=== PATIENT | female | born 1955 | race Caucasian/White ===

== ENCOUNTER 2018-11-10 14:58 | Emergency (ER) | payer MEDICARE, OTHER, SELFPAY ==
[2018-11-10 15:27] LABS: POC Glucose,Bedside 105 (70-110)
[2018-11-10 15:30] VITALS: BP 107/68; PULSE 79; RESP 20; TEMP 36.6; O2SAT 96; BMI 37.0
--- NOTE | 2018-11-10 15:34 | HMH.EDUTC ---
[facility] [place] Disposition Clinical Impression: Chills Fatigue Qualifiers: Fatigue type: unspecified Qualified Code(s): R53.83 - Other fatigue Diabetes mellitus Qualifiers: Diabetes mellitus type: type 2 Diabetes mellitus laborer marine terminal insulin use: without laborer marine terminal use Diabetes mellitus complication status: without complication Qualified Code(s): E11.9 - Type 2 diabetes mellitus without complications Disposition: Home, Self-Care Condition on Discharge: Good Instructions: DI for Fatigue Additional Instructions: Follow up with your regular doctor in 24 hours. Return if you are getting worse. Continue the antibiotics you are on. GO TO THE ER FOR ANY WORSENING OR LIFE THREATENING SYMPTOMS Referrals: Mary Ann South [Primary Care Provider] - Time of Disposition: 17:18 Medical Decision Making - Medical Records Medical records reviewed: No: I reviewed the patient's medical records. - Jaylon Inquiry Pt receiving controlled substance: No Jaylon was queried for this patient: No Vital Signs: 11/10/18 15:30 11/10/18 17:33 Temperature 97.8 F 97.9 F Temperature Source Oral Oral Pulse Rate 74 Pulse Rate [Right Radial] 79 Respiratory Rate 20 20 Blood Pressure 110/74 Blood Pressure [Right Arm] 107/68 L Blood Pressure Mean [Right Arm] 81 Blood Pressure Source Automatic Cuff Blood Pressure Position Sitting 02 Sat by Pulse Oximetry 96 Oxygen Delivery Method Room Air Room Air - Lab Data Lab results reviewed: Yes: I reviewed the patient's lab results. Lab Results 11/10/18 15:18: POC Glucose 105 11/10/18 16:00: WBC 7.6, RBC 5.08, Hgb 13.3, Hct 41.5, MCV 81.7, MCH 26.3 L, MCHC 32.1, RDW 14.7, Plt Count 235, MPV 8.0, Neut % (Auto) 66.4, Lymph % (Auto) 14.1, Bond % (Auto) 5.5, Eos % (Auto) 13.7 H, Baso % (Auto) 0.4, Neut # (Auto) 5.1, Lymph # (Auto) 1.1, Bond # (Auto) 0.4, Eos # (Auto) 1.0 H, Baso # (Auto) 0.0 11/10/18 16:00: Sodium 136, Potassium 3.8, Chloride 99, Carbon Dioxide 27, Anion Gap 13.8, BUN 13, Creatinine 1.00, Estimated Creat Clear 90, Estimated GFR 56 L, Est GFR ( Amer) 67, Glucose 101, Calcium 9.2 11/10/18 16:00: Monoscreen Negative 11/10/18 16:06: Urine Color [place], Urine Appearance Slightly cloudy, Urine pH 5.5, Ur Specific [place] 1.020, Urine Protein 1+, Urine Glucose (UA) Negative, Urine Ketones 1+, Urine Blood Negative, Urine Nitrate Negative, Urine Bilirubin 1+ A, Urine Urobilinogen 0.2, Ur Leukocyte Esterase Negative Result diagrams: 11/10/18 16:00 11/10/18 16:00 - Radiology Data #1 Image(s): Chest Image Reviewed: Yes I reviewed the patient's radiology image, Yes I have reviewed radiologist's interpretation Preliminary Findings: Normal/NAD [facility] [place] HPI - General Stated complaint: blood sugar issues Time Seen by Provider: 11/10/18 16:00 - History of Present Illness Provider Complaint: She has been having waxing and waning fatigue over the past 3 weeks or so. During this time she has been treated twice for a uti with macrobid (5 day courses). Yesterday, she had an episode of chilling while she was out with her friends [place]. She is diabetic. Her friend gave her some honey to eat when she started the chilling. The chilling did subside, but afterwards when she got to chech her blood sugar it was 506. Normally her blood sugars run very close to normal. This morning at home her blood sugar was 106. She denies any documented fever. She states that in the past she had mono and she felt similar to how she does now. - Related Data Home Medications Medication Instructions Recorded Confirmed Aspirin 81 mg PO DAILY 11/10/18 11/10/18 Levothyroxine Sodium 125 mcg PO DAILY 11/10/18 11/10/18 [Levothyroxine 125mcg (0.125mg) Tab] Metformin HCl 500 mg PO BID 11/10/18 11/10/18 Nitrofurantoin Monohyd/M-Cryst 100 mg PO BID 11/10/18 11/10/18 [Nitrofurantoin Bond-Mcr 100 mg] Pravastatin Sodium [Pravachol 40mg 40 mg PO DAILY 11/10/18 11/10/18 Tablet
--- NOTE | 2018-11-10 15:35 | PC.NURSE ---
1535: XRAY NOTIFIED OF ORDER
--- NOTE | 2018-11-10 15:36 | XR_ITS ---
XR chest 2V HISTORY: ITS.REASON: FATIGUED ORDERING PHYSICIAN: Morris Hart PATIENT AGE: 63 years Technique: PA and lateral chest COMPARISON: Previous CXR 12/08/2007. FINDINGS: No prominent findings. Upper normal markings are seen at the right suprahilar and infrahilar region but these are most likely stable since 2007 comparison study. Nothing definitely acute. No pleural effusion. No pneumothorax. The heart is normal in size. Chest wall appears intact. --------IMPRESSION. Nothing definitely acute. Upper normal markings right infrahilar & right suprahilar region-appears similar to 2008 study. Thus Doubt additional significant acute process.
--- NOTE | 2018-11-10 15:39 | PC.NURSE ---
1539: PT AMBULATORY TO XRAY WITH DOOR TO DOOR LEAD GENERATION
--- NOTE | 2018-11-10 15:45 | PC.NURSE ---
1518-C.MJ COBIAN AT PT BEDSIDE. PT BG 105.
[2018-11-10 16:36] LABS: Apearance,Urine Slightly Cloudy (Clear); Bilirubin,Urine 1+ (Negative); Blood, Urine Negative (Negative); Color,Urine Amber (Yellow); Glucose,Urine (UA) Negative (Negative); Ketones,Urine 1+ (Negative); PH,Urine 5.5 (5.0-8.5); Protein,Urine 1+ (Negative); UTC Leukocyte Esterase,Urine Negative (Negative); UTC Nitrate,Urine Negative (Negative); Urobilinogen,Urine 0.2 EU/dl (0.2)
[2018-11-10 16:41] LABS: Basophils % 0.4 % (0.1-2.0); Eosinophils % 13.7 % (0.1-12.0); Hematocrit 41.5 % (37.0-47.0); Hemoglobin 13.3 g/dL (12.2-16.2); Lymphocytes # 1.1 K/mm3 (0.7-4.5); Lymphocytes % 14.1 % (10-50); Mean Corpuscular HGB Conc 32.1 g/dL (31.8-35.4); Mean Corpuscular Hemoglobin 26.3 pg (27.0-31.2); Mean Corpuscular Volume 81.7 fl (81-99); Monocytes # 0.4 K/mm3 (0.1-1.0); Monocytes % 5.5 % (1.7-9.3); Neutrophils # 5.1 K/mm3 (1.8-7.8); Neutrophils % 66.4 % (37.0-80.0); Platelet Count 235 K/mm3 (142-424); Red Blood Count 5.08 M/mm3 (4.20-5.40); Red Cell Distribution Width 14.7 % (11.5-17.5); White Blood Count 7.6 K/mm3 (4.8-10.8)
[2018-11-10 16:45] LABS: Anion Gap 13.8 mEq/L (5-15); Blood Urea Nitrogen 13 mg/dL (7-18); Calcium 9.2 mg/dL (8.5-10.1); Carbon Dioxide 27 mmol/L (21.0-32.0); Chloride 99 mmol/L (98-107); Creatinine Clearance Estimated 90 mL/min (50-200); Estimated Glomerular Filt Rate 56 ml/min (>60); GFR (African American) 67 ML/MIN (>60); Glucose 101 mg/dL (74-106); Potassium 3.8 mmoL/L (3.5-5.1); Sodium 136 mmol/L (136-145)
[2018-11-10 16:50] LABS: Monoscreen (Rapid) Negative (Negative)
[2018-11-10 17:33] VITALS: BP 110/74; PULSE 74; RESP 20; TEMP 36.6; O2SAT 98
== END 2018-11-10 17:34 | disposition home or self-care (01) ==
PROVIDERS: Emergency Provider Nurse Practitioner Family; PCP Family Medicine
DX: R53.83 Other fatigue (principal); E11.9 Type 2 diabetes mellitus without complications; Z79.84 Long term (current) use of oral hypoglycemic drugs; Z88.0 Allergy status to penicillin
CPT/HCPCS: G0463; 71046; 80048; 81003; 82962; 85025; 86318; 99202

== ENCOUNTER → 2021-09-05 13:34 | Outpatient (CLI) | payer MEDICARE, OTHER, SELFPAY ==
--- NOTE | 2021-09-05 14:21 | MM_ITS ---
PROCEDURE INFORMATION: Exam: MG Bilateral Screening 3D Mammography Exam date and time: 09/05/2021 2:21 PM Age: 66 years old Clinical indication: Encounter for screening mammogram for malignant neoplasm of breast TECHNIQUE: Imaging protocol: Bilateral screening tomosynthesis and 2D mammography including computer-aided detection (CAD) when performed. COMPARISON: No relevant prior studies available. FINDINGS: MAMMOGRAPHY: Breast composition: The breast tissue is composed of scattered areas of fibroglandular density. Mass: None. Architectural distortion: None. Calcifications: No suspicious calcifications. Asymmetric density: None. Skin thickening: None. Axillary adenopathy: None. IMPRESSION: No mammographic evidence of malignancy. Annual screening is recommended unless otherwise clinically indicated. ASSESSMENT: BI-RADS Category 1: Negative
== END ==
PROVIDERS: PCP Family Medicine; Visit Provider Family Medicine
DX: Z12.31 Encounter for screening mammogram for malignant neoplasm of breast (principal)
CPT/HCPCS: 77063; 77067

== ENCOUNTER 2023-12-06 07:58 | Outpatient (CLI) | payer MEDICARE, OTHER, SELFPAY ==
--- NOTE | 2023-12-06 08:10 | MM_ITS ---
PROCEDURE INFORMATION: Exam: MG Bilateral Screening 3D Mammography Exam date and time: 12/06/2023 8:00 AM Age: 68 years old Clinical indication: Screening. Her maternal aunt had breast cancer. History of benign left stereotactic biopsy. TECHNIQUE: Imaging protocol: Bilateral Screening tomosynthesis and 2D mammography including computer-aided detection (CAD) when performed. COMPARISON: MG MM DIG SCREENING MAMM BI W/CAD 09/05/2021 2:15 PM FINDINGS: MAMMOGRAPHY: Breast composition: There are scattered areas of fibroglandular density. Mass: No suspicious mass. Architectural distortion: None. Calcifications: No suspicious calcifications. Asymmetric density: None. Skin thickening: None. Axillary adenopathy: None. IMPRESSION: No mammographic evidence of malignancy. Annual screening is recommended unless otherwise clinically indicated. ASSESSMENT: BI-RADS Category 1: Negative
== END 2023-12-06 23:59 ==
PROVIDERS: PCP Internal Medicine; Visit Provider Internal Medicine
DX: Z12.31 Encounter for screening mammogram for malignant neoplasm of breast (principal)
CPT/HCPCS: 77063; 77067

== ENCOUNTER 2025-01-22 14:30 | Outpatient (CLI) | payer MEDICARE, OTHER, SELFPAY ==
[2025-01-22 14:24] LABS: Hemoglobin A1C 6.6 % (4.0-6.0)
[2025-01-22 14:31] LABS: Alanine Aminotransferase 18 U/L (12-78); Albumin Level 4.1 g/dl (3.5-5.0); Albumin/Globulin Ratio 1.7 (1.1-1.8); Alkaline Phosphatase 122 U/L (38-126); Anion Gap 8.3 mEq/L (5-15); Aspartate Amino Transferase 24 U/L (14-36); Bilirubin,Total 0.4 mg/dl (0.2-1.3); Blood Urea Nitrogen 14 mg/dl (7-17); Calcium 9.6 mg/dl (8.4-10.2); Carbon Dioxide 28 mmol/L (22.0-30.0); Chloride 109 mmol/L (98-107); Chol/HDL Ratio 3.2 (1-3.5); Cholesterol 167 mg/dl (140-200); Estimated Glomerular Filt Rate 71 ml/min (>60); GFR (African American) 85 ML/MIN (>60); Globulin 2.4 g/dL (1.3-3.2); Glucose 105 mg/dl (74-100); HDL Cholesterol 52 mg/dl (40-60); Potassium 4.3 mmoL/L (3.5-5.1); Sodium 141 mmol/L (136-145); Total Protein,Serum 6.5 g/dl (6.3-8.2); Triglycerides 142 mg/dl (30-150); VLDL Cholesterol 28 mg/dL (0-40)
[2025-01-22 14:42] LABS: Direct LDL Cholesterol 74.88 mg/dL (100-129)
[2025-01-22 14:48] LABS: Free T4 (Free Thyroxine) 1.59 ng/dl (0.78-2.19)
[2025-01-22 15:02] LABS: Thyroid Stimulating Hormone 0.87 uIU/mL (0.465-4.68)
== END 2025-01-22 23:59 | disposition home or self-care (01) ==
LOC: LAB.DROPOF 14:31
PROVIDERS: PCP Internal Medicine; Visit Provider Internal Medicine
DX: Z00.00 Encounter for general adult medical examination without abnormal findings (principal); Z13.29 Encounter for screening for other suspected endocrine disorder; E78.5 Hyperlipidemia, unspecified; E03.9 Hypothyroidism, unspecified; E11.9 Type 2 diabetes mellitus without complications; Z79.84 Long term (current) use of oral hypoglycemic drugs
CPT/HCPCS: 80053; 80061; 83036; 84439; 84443

== ENCOUNTER → 2025-02-24 11:08 | Outpatient (CLI) | payer MEDICARE, OTHER, SELFPAY ==
--- OUTSIDE RECORDS SUMMARY | 2025-02-24 11:11 | XMS_ITS | Data Portability ---
Author Organization [facility] Address [address] [facility] [address] [place], [place] [id number] Assessment Encounter Date Assessment Date Assessment LastModified by Organization Details LastModified Time 06/13/2019 06/13/2019 Ms. Castillo presents for her diabetes check up. We reviewed her labs and her A1C is stable at 5.9. She continues to take metformin 500 mg twice daily. Blood pressure is acceptable. Slight neuropathy was noted on exam in the toes bilaterally. She was counseled regarding following up with a fabricator foam rubber. She also requested updated handicap paperwork due to her knee arthritis and hip pains. We discussed the importance of annual eye exams. She has not had an eye exam recently. She goes to [place] and is planning to schedule an appointment soon. Overactive bladder is relieved with the myrbetriq. We provided her with a 28 day supply of myrbetriq samples. Ms. Castillo is due for her annual mammogram; she has not had one since 2017. Not available 06/14/2019 14:20:26 05/04/2020 05/04/2020 Evon presents for her wellness checkup. 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 Pre diabetes is stable and well controlled. Lipids are borderline and we recommend she continue with the statin. She has over active bladder symptoms and the Vesicare was not covered. We have provided samples of Myrbetriq and hopefully that will help. Vaccines are reviewed and she needs the flu vaccine next month. She should consider the new shingles vaccine but it is not available in our office. Her primary problem is obesity and she is unhappy with that problem but has lost significant weight so ongoing caution is advised. We recommend just healthy eating rather than focusing on dieting. Depression screen is negative and fall risk is low. We can prescribe some phentermine to help with reducing her appetite Not available 05/06/2020 00:24:58 08/02/2021 08/02/2021 Evon presents for her wellness checkup. 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 Pre diabetes is stable and well controlled. Lipids are borderline and we recommend she continue with the statin. She has over active bladder symptoms and the Myrbetriz helped but was not covered. We will prescribe an anticholinergic and hopefully it will help without significant side effects. Vaccines are reviewed and she receives the flu vaccine. She should consider the new shingles vaccine but it is not available in our office. Her primary problem is obesity and she is unhappy with that problem but has lost significant weight so ongoing caution is advised. We recommend just healthy eating rather than focusing on dieting. Depression screen is negative and fall risk is low. We can prescribe some phentermine to help with reducing her appetite Not available 08/04/2021 21:30:20 09/28/2022 09/28/2022 Evon presents for her wellness check-up. 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 She has lost about 15 pounds this past year. Pre diabetes is stable and well controlled. Lipids are borderline and we recommend she continue with the statin. We do recommend adding a trial of GLP1 Inhibitor, Victoza for the diabetes and it may also help her weight loss. She should make an eye appointment. She has been having an intermittent burning sensation over the left flank but does not really have a lot of pain there. A urinalysis is completely clear. We suspect this is most consistent with a thoracic radiculopathy so we recommend back stretches to hopefully help. If the problem worsens she may need further evaluation. She has over active bladder symptoms and the Oxybutynin helps. Vaccines are reviewed and she receives the flu vaccine. She should consider the new shingles vaccine but it is not available in our office. She is due colon cancer screening and with a history of a normal colonoscopy around ten years ago, we will order a cologuard. Ten year CV risk is 16.10%. Her primary problem is obesity and she is unhappy with that problem but has lost significant weight so ongoing caution is advised. We recommend just healthy eating rather than focusing on dieting. Depression screen is negative and fall risk is low. She has been working hard on weight loss and has done well but still struggles. With her history of diabetes, she is a candidate for Victoza and we will begin a trial of the lowest dose this month and increase it slowly if tolerated and covered by her insurance. Not available 09/28/2022 21:40:14 04/10/2023 04/10/2023 Evon follows u p on diabetes. She continues taking metformin and we had tried a GLP1 Inhibitor but it was not covered. It appears that Ozempic may be covered so we are ordering that. In addition her thyroid dosage requires adjustment downward and being over-medicated may be contributing to her mild blood pressure elevation. Weight reduction has been difficult for her and would greatly benefit her health. If the prescription GLP1 inhibitors will not be covered we can offer her the compounded Semaglutide. Not available 04/11/2023 01:18:32 Plan of Treatment Reminders Order Date Submit Date Provider Last Modified By Organization Details Last Modified Time Details Appointments None recorded. Lab urinalysis, dipstick 2022 023 [facility], [address] [place], [address], 3 17:05:00 noninvasive colorectal cancer DNA + occult blood screening, QL, stool [address] [facility], [address] [place], [address], 3 11:25:52 Referral None recorded. Procedures None recorded. Surgeries None recorded. Imaging MAMMO, screening, digital, bilateral - routine screening 2022 023 chema n5 [facility]), [address], [place], [address], 3 16:33:35 MAMMO, screening, digital, bilateral - routine screening 2020 021 jstapleto n5 [facility] (Scheduling), [address], [place], [address], 1 11:38:18 MAMMO, screening, digital, bilateral - routine screening 2019 020 [facility] n5 [facility] (Scheduling), [address], [place], [address], 0 17:58:30 Medication Orders Ozempic 0.25 mg or 0.5 mg (2 mg/1.5 mL) subcutaneou s pen injector 2022 023 [facility], [address] [place], [address], 3 11:29:24 levothyroxi ne 100 mcg tablet 2022 023 [facility], [address] [place], [address], 3 11:29:25 Victoza 3-Farhat 0.6 mg/0.1 mL (18 mg/3 mL) subcutaneou s pen injector 2022 023 [facility], [address] [place], [address], 3 11:32:51 oxybutynin chloride ER 10 mg tablet,exte nded release 24 hr 2020 021 [facility], [address] [place], [address], 1 16:19:14 phentermine 37.5 mg tablet 2020 021 [facility], [address] [place], [address], 3 15:29:50 Myrbetriq 50 mg tablet,exte nded release 2019 020 [facility], [address], [address], 3 15:29:42 phentermine 37.5 mg tablet 2019 020 [facility], [address], [address], 3 15:29:50 Myrbetriq 50 mg tablet,exte nded release 2018 019 [facility], [address], [address], 3 15:29:42 Patient TargetsNo targets recorded. Patient Instructions Encounter Date Encounter Id Patient Instructions Last Modified By Organization Details Last Modified Time 09/28/2022 [id number] low back pain: exercises Not available 09/28/2022 16:12:35 acute low back pain: exercises Not available 09/28/2022 16:12:35 [email or web address] Not available 01/2023 16:04:04 learning about healthy weight Not available 09/28/2022 21:41:56 Reason for Referral None Reported. Results Created Date Observation Date Name Description Value Unit Range Abnormal Flag Note LastModifiedBy Organization Detail LastModifiedTime 06/12/2006/13/2019 HbA1c (hemo globi n A1c), blood hemoglobin A1C 5.9 %_of_ total _HGB <5.7 high For someo ne witho ut known diabe alissa, a hemog lobin A1c value betwe en 5.7% and 6.4% is consi stent with predi abete s and shoul d be confi rmed with a follo w-up test. For someo ne with known diabe alissa, a value <7% indic ates that their diabe alissa is well contr olled . A1c targe ts shoul d be indiv idual ized based on durat ion of diabe alissa, age, comor bid condi tions , and other consi derat ions. This assay resul t is consi stent with an incre ased risk of diabe alissa. Curre ntly, no conse nsus exist s neda hammonds use of hemog lobin A1c for diagn osis of diabe alissa for child angeles. Not Available [facility] [place] [facility] [address] [place], [address], 06/13/2019 07:51:50 04/30/20 20 05/01/2020 micro album in/cr eatin ine, mass ratio , urine creatinine, random urine 37 mg/dL 20-275 normal Not Available [facility] [address] [place], [address], 05/01/2020 09:33:48 04/30/20 20 05/01/2020 micro album in/cr eatin ine, mass ratio , urine albumin, urine <0.2 mg/dL see note: normal Refer ence Range : Refer ence Range Not estab lishe d Not Available [facility] [address] [place], [address], 05/01/2020 09:33:48 04/30/20 20 05/01/2020 micro album in/cr eatin ine, mass ratio , urine albumin/crea tinine ratio, random urine NOTE mcg/m g_cre at <30 normal NOTE: The urine album in value is less than 0.2 mg/dL there fore we are unabl e to calcu late excre tion and/o r creat inine ratio . The ADA defin es abnor malit ies in album in excre tion as follo ws: Categ ory Resul t (mcg/ mg creat inine ) Leandra l <30 Micro album inuri a 30-29 9 Clini tara album inuri a > OR = 300 The ADA recom mends that at least two of three speci mens colle cted withi n a 3-6 month perio d be abnor mal befor e consi valeria g a patie nt to be withi n a diagn ostic categ ory. Not Available [facility] [address] [facility] [place], [address], 05/01/2020 09:33:48 04/30/20 20 05/01/2020 lipid panel , serum cholesterol, total 156 mg/dL <200 normal Not Available [facility] [address] [place], [address], 05/01/2020 09:33:48 04/30/20 20 05/01/2020 lipid panel , serum HDL cholesterol 57 mg/dL > or = 50 normal Not Available [facility] [address] [facility], [place], [address], 05/01/2020 09:33:48 04/30/20 20 05/01/2020 lipid panel , serum triglyceride s 120 mg/dL <150 normal Not Available [facility] [address] [facility], [place], [address], 05/01/2020 09:33:48 04/30/20 20 05/01/2020 lipid panel , serum LDL-choleste rol 78 mg/dL _(tara c) normal Refer ence range : <100 Jorge able range <100 mg/dL for prima ry preve ntion ; <70 mg/dL for patie nts with CHD or diabe tic patie nts with > or = 2 CHD risk facto rs. LDL-C is now calcu lated using the Heather n-Hop kins calcu nisreen n, which is a valid ated novel metho d provi ding marek r accur acy than the Fried armani equat ion in the estim ation of LDL-C . Heather ornelas SS et al. JOHAN. 2013; 310(1 9): 2061- 2068 (http ://ed ucati on.Qu estDi SeeToos. com/f aq/FA Q164) Not Available [facility] [address] [facility] [place], [address], 05/01/2020 09:33:48 04/30/20 20 05/01/2020 lipid panel , serum chol/HDLC ratio 2.7 (calc ) <5.0 normal Not Available [facility] [address] [place], [address], 05/01/2020 09:33:48 04/30/2005/01/2020 lipid panel , serum non HDL cholesterol 99 mg/dL _(tara c) <130 normal For patie nts with diabe alissa plus 1 major ASCVD risk facto r, treat ing to a non-H DL-C goal of <100 mg/dL (LDL- C of <70 mg/dL ) is consi dered a thera peuti c optio n. Not Available [facility] [address] [place], [address], 05/01/2020 09:33:48 04/30/2005/01/2020 CMP, serum or plasm a glucose 101 mg/dL 65-99 high Fasti ng refer ence inter le For someo ne witho ut known diabe alissa, a gluco se value betwe en 100 and 125 mg/dL is consi stent with predi abete s and shoul d be confi rmed with a follo w-up test. Not Available [facility] [address] [place], [address], 05/01/2020 09:33:48 04/30/2005/01/2020 CMP, serum or plasm a urea nitrogen (BUN) 18 mg/dL 7-25 normal Not Available [facility] [address] [place], [address], 05/01/2020 09:33:48 04/30/2005/01/2020 CMP, serum or plasm a creatinine 0.72 mg/dL 0.50-0 .99 normal For patie nts >49 years of age, the refer ence limit for Creat inine is appro ximat radha 13% highe r for peopl e ident ified as Afric an-Am renato n. Not Available [facility] [address] [facility] [place], [address], 05/01/2020 09:33:48 04/30/20 20 05/01/2020 CMP, serum or plasm a eGFR non-afr. somali 87 mL/mi n/1.7 3m2 > or = 60 normal Not Available [facility] [address] [facility] [place], [address], 05/01/2020 09:33:48 04/30/20 20 05/01/2020 CMP, serum or plasm a eGFR 100 mL/mi n/1.7 3m2 > or = 60 normal Not Available [facility] [address] [facility] [place], [address], 05/01/2020 09:33:48 04/30/20 20 05/01/2020 CMP, serum or plasm a BUN/creatini ne ratio NOT APPLIC ABLE (calc ) 6-22 Not Available [facility] [address] [facility] [place], [address], 05/01/2020 09:33:48 04/30/2005/01/2020 CMP, serum or plasm a sodium 138 mmol/ L 135-14 6 normal Not Available [facility] [address] [facility] [place], [address], 05/01/2020 09:33:48 04/30/2005/01/2020 CMP, serum or plasm a potassium 4.5 mmol/ L 3.5-5. 3 normal Not Available [facility] [address] [facility] [place], [address], 05/01/2020 09:33:48 04/30/20 20 05/01/2020 CMP, serum or plasm a chloride 104 mmol/ L 98-110 normal Not Available [facility] [address] [facility] [place], [address], 05/01/2020 09:33:48 04/30/20 20 05/01/2020 CMP, serum or plasm a carbon dioxide 28 mmol/ L 20-32 normal Not Available [facility] [address] [facility] [place], [address], 05/01/2020 09:33:48 04/30/2005/01/2020 CMP, serum or plasm a calcium 9.4 mg/dL 8.6-10 .4 normal Not Available [facility] [address] [facility] [place], [address], 05/01/2020 09:33:48 04/30/2005/01/2020 CMP, serum or plasm a protein, total 6.4 g/dL 6.1-8. 1 normal Not Available [facility] [address] [place], [address], 05/01/2020 09:33:48 04/30/2005/01/2020 CMP, serum or plasm a albumin 4.0 g/dL 3.6-5. 1 normal Not Available [facility] [place] [address] [facility] [place], [address], 05/01/2020 09:33:48 04/30/2005/01/2020 CMP, serum or plasm a globulin 2.4 g/dL_ (calc ) 1.9-3. 7 normal Not Available [facility] [address] [place], [address], 05/01/2020 09:33:48 04/30/2005/01/2020 CMP, serum or plasm a albumin/glob ulin ratio 1.7 (calc ) 1.0-2. 5 normal Not Available [facility] [place] [address] [facility] [place], [address], 05/01/2020 09:33:48 04/30/2005/01/2020 CMP, serum or plasm a bilirubin, total 0.4 mg/dL 0.2-1. 2 normal Not Available [facility] [address] [place], [address], 05/01/2020 09:33:48 04/30/20 20 05/01/2020 CMP, serum or plasm a alkaline phosphatase 109 U/L 37-153 normal Not Available [facility] [address] [place], [address], 05/01/2020 09:33:48 04/30/20 20 05/01/2020 CMP, serum or plasm a AST 21 U/L 10-35 normal Not Available [facility] [address] [place], [address], 05/01/2020 09:33:48 04/30/20 20 05/01/2020 CMP, serum or plasm a ALT 20 U/L 6-29 normal Not Available [facility] [address] [place], [address], 05/01/2020 09:33:48 04/30/2005/01/2020 HbA1c (hemo globi n A1c), blood hemoglobin A1C 6.1 %_of_ total _HGB <5.7 high For someo ne witho ut known diabe alissa, a hemog lobin A1c value betwe en 5.7% and 6.4% is consi stent with predi abete s and shoul d be confi rmed with a follo w-up test. For someo ne with known diabe alissa, a value <7% indic ates that their diabe alissa is well contr olled . A1c targe ts shoul d be indiv idual ized based on durat ion of diabe alissa, age, comor bid condi tions , and other consi derat ions. This assay resul t is consi stent with an incre ased risk of diabe alissa. Curre ntly, no conse nsus exist s regar ding use of hemog lobin A1c for diagn osis of diabe alissa for child [place]. Not Available [facility] [address] [place], [address], 05/01/2020 09:33:49 04/30/2005/01/2020 TSH, serum or plasm a TSH 0.97 mIU/L 0.40-4 .50 normal Not Available [facility] [address] [facility] [place], [address], 05/01/2020 09:33:49 04/30/2005/01/2020 CBC w/ auto diff white blood cell count 6.1 thous and/u L 3.8-10 .8 normal Not Available [facility] [place] [facility] [address] [facility] [place], [address], 05/01/2020 09:33:49 04/30/2005/01/2020 CBC w/ auto diff red blood cell count 4.85 liu on/uL 3.80-5 .10 normal Not Available [facility] [address] [place], [address], 05/01/2020 09:33:49 04/30/2005/01/2020 CBC w/ auto diff hemoglobin 12.4 g/dL 11.7-1 5.5 normal Not Available [facility] [address] [facility], [address], 05/01/2020 09:33:49 04/30/2005/01/2020 CBC w/ auto diff hematocrit 40.1 % 35.0-4 5.0 normal Not Available [facility] [address] [place], [address], 05/01/2020 09:33:49 04/30/2005/01/2020 CBC w/ auto diff MCV 82.7 fL 80.0-1 00.0 normal Not Available [facility] [address] [place], [address], 05/01/2020 09:33:49 04/30/20 20 05/01/2020 CBC w/ auto diff MCH 25.6 pg 27.0-3 3.0 low Not Available [facility] [address] [facility] [place], [address], 05/01/2020 09:33:49 04/30/20 20 05/01/2020 CBC w/ auto diff MCHC 30.9 g/dL 32.0-3 6.0 low Not Available [facility] [address] [facility] [place], [address], 05/01/2020 09:33:49 04/30/20 20 05/01/2020 CBC w/ auto diff RDW 13.6 % 11.0-1 5.0 normal Not Available [facility] [address] [place], [address], 05/01/2020 09:33:49 04/30/20 20 05/01/2020 CBC w/ auto diff platelet count 255 thous and/u L 140-40 0 normal Not Available [facility] [address] [facility] [place], [address], 05/01/2020 09:33:49 04/30/2005/01/2020 CBC w/ auto diff MPV 10.7 fL 7.5-12 .5 normal Not Available [facility] [address] [facility] [place], [address], 05/01/2020 09:33:49 04/30/2005/01/2020 CBC w/ auto diff absolute neutrophils 3044 cells /uL 1500-7 800 normal Not Available [facility] [address] [facility] [place], [address], 05/01/2020 09:33:49 04/30/20 20 05/01/2020 CBC w/ auto diff absolute lymphocytes 2159 cells /uL 850-39 00 normal Not Available [facility] [address] [place], [address], 05/01/2020 09:33:49 04/30/20 20 05/01/2020 CBC w/ auto diff absolute monocytes 372 cells /uL 200-95 0 normal Not Available [facility] [place] [facility] [address] [place], [address], 05/01/2020 09:33:49 04/30/20 20 05/01/2020 CBC w/ auto diff absolute eosinophils 445 cells /uL 15-500 normal Not Available [facility] [place] [facility] [address] [place], [address], 05/01/2020 09:33:49 04/30/20 20 05/01/2020 CBC w/ auto diff absolute basophils 79 cells /uL 0-200 normal Not Available [facility] [place] [facility] [address] [place], [address], 05/01/2020 09:33:49 04/30/20 20 05/01/2020 CBC w/ auto diff neutrophils 49.9 % normal Not Available [facility] [place] [facility] [address] [place], [address], 05/01/2020 09:33:49 04/30/20 20 05/01/2020 CBC w/ auto diff lymphocytes 35.4 % normal Not Available [facility] [place] [facility] [address] [place], [address], 05/01/2020 09:33:49 04/30/20 20 05/01/2020 CBC w/ auto diff monocytes 6.1 % normal Not Available [facility] [place] [facility] [address] [place], [address], 05/01/2020 09:33:49 04/30/20 20 05/01/2020 CBC w/ auto diff eosinophils 7.3 % normal Not Available [facility] [place] [facility] [address] [facility], [place], [address], 05/01/2020 09:33:49 04/30/20 20 05/01/2020 CBC w/ auto diff basophils 1.3 % normal Not Available [facility] [place] [facility] [address] [facility], [place], [address], 05/01/2020 09:33:49 07/28/20 21 07/29/2021 ALBUM IN, RANDO M URINE W/CRE ATINI NE creatinine, random urine 33 mg/dL 20-275 normal Not Available [facility] [place] [facility] [address] [facility], [place], [address], 07/29/2021 12:51:18 07/28/20 21 07/29/2021 ALBUM IN, RANDO M URINE W/CRE ATINI NE albumin, urine 0.7 mg/dL see note: normal Refer ence Range : Refer ence Range Not estab lishe d Not Available [facility] [place] [facility] [address] [facility], [place], [address], 07/29/2021 12:51:18 07/28/20 21 07/29/2021 ALBUM IN, RANDO M URINE W/CRE ATINI NE albumin/crea tinine ratio, random urine 21 mcg/m g_cre at <30 normal The ADA defin es abnor malit ies in album in excre tion as follo ws: Album inuri a Categ ory Resul t (mcg/ mg creat inine ) Leandra l to Mildl y incre ased <30 Moder ately incre ased 30-29 9 Sever radha incre ased > OR = 300 The ADA recom mends that at least two of three speci mens colle cted withi n a 3-6 month perio d be abnor mal befor e consi valeria g a patie nt to be withi n a diagn ostic categ ory. Not Available [facility] [place] [facility] [address] [facility], [place], [address], 07/29/2021 12:51:18 07/28/20 21 07/29/2021 LIPID PANEL , STAND LILLIE cholesterol, total 178 mg/dL <200 normal Not Available [facility] [address] [place], [address], 07/29/2021 12:51:18 07/28/20 21 07/29/2021 LIPID PANEL , STAND LILLIE HDL cholesterol 50 mg/dL > or = 50 normal Not Available [facility] [address] [place], [address], 07/29/2021 12:51:18 07/28/20 21 07/29/2021 LIPID PANEL , STAND LILLIE triglyceride s 160 mg/dL <150 high Not Available [facility] [address] [facility], [place], [address], 07/29/2021 12:51:18 07/28/20 21 07/29/2021 LIPID PANEL , STAND LILLIE LDL-choleste rol 102 mg/dL _(tara c) high Refer ence range : <100 Jorge able range <100 mg/dL for prima ry preve ntion ; <70 mg/dL for patie nts with CHD or diabe tic patie nts with > or = 2 CHD risk facto rs. LDL-C is now calcu lated using the Heather n-Hop kins calcu nisreen n, which is a valid ated novel michaelo aston jara r accur acy than the Fried armani equat ion in the estim ation of LDL-C . Heather ROACH et al. JOHAN. 2013; 310(1 9): 2061- 2068 (http ://ed ucati on.Qu Rosi burnetteTSSI Systemss. com/f aq/FA Q164) Not Available [facility] [address] [place], [address], 07/29/2021 12:51:18 07/28/20 21 07/29/2021 LIPID PANEL , STAND LILLIE chol/HDLC ratio 3.6 (calc ) <5.0 normal Not Available [facility] [address] [place], [address], 07/29/2021 12:51:18 07/28/20 21 07/29/2021 LIPID PANEL , STAND LILLIE non HDL cholesterol 128 mg/dL _(tara c) <130 normal For patie nts with diabe alissa plus 1 major ASCVD risk facto r, treat ing to a non-H DL-C goal of <100 mg/dL (LDL- C of <70 mg/dL ) is consi dered a thera peuti c optio n. Not Available [facility] [address] [place], [address], 07/29/2021 12:51:18 07/28/20 21 07/29/2021 COMPR EHENS ROSALBA METAB OLIC PANEL glucose 107 mg/dL 65-99 high Fasti ng refer ence inter le For someo ne witho ut known diabe alissa, a gluco se value betwe en 100 and 125 mg/dL is consi stent with predi abete s and shoul d be confi rmed with a follo w-up test. Not Available [facility] [address] [place], [address], 07/29/2021 12:51:19 07/28/20 21 07/29/2021 COMPR EHENS ROSALBA METAB OLIC PANEL urea nitrogen (BUN) 14 mg/dL 7-25 normal Not Available [facility] [address] [place], [address], 07/29/2021 12:51:19 07/28/20 21 07/29/2021 COMPR EHENS ROSALBA METAB OLIC PANEL creatinine 0.74 mg/dL 0.50-0 .99 normal For patie nts >49 years of age, the refer ence limit for Creat inine is appro ximat radha 13% highe r for peopl e ident ified as Afric an-Am renato n. Not Available [facility] [address] [place], [address], 07/29/2021 12:51:19 07/28/20 21 07/29/2021 COMPR EHENS ROSALBA METAB OLIC PANEL eGFR non-afr. somali 83 mL/mi n/1.7 3m2 > or = 60 normal Not Available [facility] [address] [facility] [place], [address], 07/29/2021 12:51:19 07/28/20 21 07/29/2021 COMPR EHENS ROSALBA METAB OLIC PANEL eGFR 96 mL/mi n/1.7 3m2 > or = 60 normal Not Available [facility] [address] [facility] [place], [address], 07/29/2021 12:51:19 07/28/20 21 07/29/2021 COMPR EHENS ROSALBA METAB OLIC PANEL BUN/creatini ne ratio NOT APPLIC ABLE (calc ) 6-22 Not Available [facility] [address] [facility] [place], [address], 07/29/2021 12:51:19 07/28/20 21 07/29/2021 COMPR EHENS ROSALBA METAB OLIC PANEL sodium 141 mmol/ L 135-14 6 normal Not Available [facility] [address] [place], [address], 07/29/2021 12:51:19 07/28/20 21 07/29/2021 COMPR EHENS ROSALBA METAB OLIC PANEL potassium 4.6 mmol/ L 3.5-5. 3 normal Not Available [facility] [address] [facility] [place], [address], 07/29/2021 12:51:19 07/28/20 21 07/29/2021 COMPR EHENS ROSALBA METAB OLIC PANEL chloride 105 mmol/ L 98-110 normal Not Available [facility] [address] [facility] [place], [address], 07/29/2021 12:51:19 07/28/20 21 07/29/2021 COMPR EHENS ROSALBA METAB OLIC PANEL carbon dioxide 33 mmol/ L 20-32 high Not Available [facility] [address] [facility] [place], [address], 07/29/2021 12:51:19 07/28/20 21 07/29/2021 COMPR EHENS ROSALBA METAB OLIC PANEL calcium 9.7 mg/dL 8.6-10 .4 normal Not Available [facility] [address] [facility] [place], [address], 07/29/2021 12:51:19 07/28/20 21 07/29/2021 COMPR EHENS ROSALBA METAB OLIC PANEL protein, total 7.0 g/dL 6.1-8. 1 normal Not Available [facility] [address] [facility] [place], [address], 07/29/2021 12:51:19 07/28/20 21 07/29/2021 COMPR EHENS ROSALBA METAB OLIC PANEL albumin 3.9 g/dL 3.6-5. 1 normal Not Available [facility] [address] [facility] [place], [address], 07/29/2021 12:51:19 07/28/20 21 07/29/2021 COMPR EHENS ROSALBA METAB OLIC PANEL globulin 3.1 g/dL_ (calc ) 1.9-3. 7 normal Not Available [facility] [address] [place], [address], 07/29/2021 12:51:19 07/28/20 21 07/29/2021 COMPR EHENS ROSALBA METAB OLIC PANEL albumin/glob ulin ratio 1.3 (calc ) 1.0-2. 5 normal Not Available [facility] [address] [facility] [place], [address], 07/29/2021 12:51:19 07/28/20 21 07/29/2021 COMPR EHENS ROSALBA METAB OLIC PANEL bilirubin, total 0.4 mg/dL 0.2-1. 2 normal Not Available [facility] [address] [facility] [place], [address], 07/29/2021 12:51:19 07/28/20 21 07/29/2021 COMPR EHENS ROSALBA METAB OLIC PANEL alkaline phosphatase 123 U/L 37-153 normal Not Available [facility] [address] [place], [address], 07/29/2021 12:51:19 07/28/20 21 07/29/2021 COMPR EHENS ROSALBA METAB OLIC PANEL AST 22 U/L 10-35 normal Not Available [facility] [address] [facility] [place], [address], 07/29/2021 12:51:19 07/28/20 21 07/29/2021 COMPR EHENS ROSALBA METAB OLIC PANEL ALT 24 U/L 6-29 normal Not Available [facility] [address] [place], [address], 07/29/2021 12:51:19 07/28/20 21 07/29/2021 HEMOG LOBIN A1C hemoglobin A1C 6.6 %_of_ total _HGB <5.7 high For someo ne witho ut known diabe alissa, a hemog lobin A1c value of 6.5% or great er indic ates that they may have diabe alissa and this shoul d be confi rmed with a follo w-up test. For someo ne with known diabe alissa, a value <7% indic ates that their diabe alissa is well contr olled and a value great er than or equal to 7% indic ates subop timal contr ol. A1c targe ts shoul d be indiv idual ized based on durat ion of diabe alissa, age, comor bid condi tions , and other consi derat ions. Curre ntly, no conse nsus exist s neda hammonds use of hemog lobin A1c for diagn osis of diabe alissa for child angeles. Not Available [facility] [address] [facility] [facility], [place], [address], 07/29/2021 12:51:19 07/28/20 21 07/29/2021 TSH TSH 2.06 mIU/L 0.40-4 .50 normal Not Available [facility] [address], [place], [address], 07/29/2021 12:51:19 07/28/20 21 07/29/2021 CBC (INCL UDES DIFF/ PLT) white blood cell count 6.5 thous and/u L 3.8-10 .8 normal Not Available [facility] [address], [place], [address], 07/29/2021 12:51:20 07/28/20 21 07/29/2021 CBC (INCL UDES DIFF/ PLT) red blood cell count 4.83 liu on/uL 3.80-5 .10 normal Not Available [facility] [address], [place], [address], 07/29/2021 12:51:20 07/28/20 21 07/29/2021 CBC (INCL UDES DIFF/ PLT) hemoglobin 12.7 g/dL 11.7-1 5.5 normal Not Available [facility] [address], [place], [address], 07/29/2021 12:51:20 07/28/20 21 07/29/2021 CBC (INCL UDES DIFF/ PLT) hematocrit 39.3 % 35.0-4 5.0 normal Not Available [facility] [place] [facility] [address], [place], [address], 07/29/2021 12:51:20 07/28/20 21 07/29/2021 CBC (INCL UDES DIFF/ PLT) MCV 81.4 fL 80.0-1 00.0 normal Not Available [facility] [place] [facility] [address] [facility], [place], [address], 07/29/2021 12:51:20 07/28/20 21 07/29/2021 CBC (INCL UDES DIFF/ PLT) MCH 26.3 pg 27.0-3 3.0 low Not Available [facility] [address] [facility], [place], [address], 07/29/2021 12:51:20 07/28/20 21 07/29/2021 CBC (INCL UDES DIFF/ PLT) MCHC 32.3 g/dL 32.0-3 6.0 normal Not Available [facility] [address] [facility], [place], [address], 07/29/2021 12:51:20 07/28/20 21 07/29/2021 CBC (INCL UDES DIFF/ PLT) RDW 14.0 % 11.0-1 5.0 normal Not Available [facility] [address] [facility], [place], [address], 07/29/2021 12:51:20 07/28/20 21 07/29/2021 CBC (INCL UDES DIFF/ PLT) platelet count 279 thous and/u L 140-40 0 normal Not Available [facility] [address], [place], [address], 07/29/2021 12:51:20 07/28/20 21 07/29/2021 CBC (INCL UDES DIFF/ PLT) MPV 11.4 fL 7.5-12 .5 normal Not Available [facility] [address] [facility], [place], [address], 07/29/2021 12:51:20 07/28/20 21 07/29/2021 CBC (INCL UDES DIFF/ PLT) absolute neutrophils 3523 cells /uL 1500-7 800 normal Not Available [facility] [place] [facility] [address], [place], [address], 07/29/2021 12:51:20 07/28/20 21 07/29/2021 CBC (INCL UDES DIFF/ PLT) absolute lymphocytes 1996 cells /uL 850-39 00 normal Not Available [facility] [address], [place], [address], 07/29/2021 12:51:20 07/28/20 21 07/29/2021 CBC (INCL UDES DIFF/ PLT) absolute monocytes 410 cells /uL 200-95 0 normal Not Available [facility] [address], [place], [address], 07/29/2021 12:51:20 07/28/20 21 07/29/2021 CBC (INCL UDES DIFF/ PLT) absolute eosinophils 475 cells /uL 15-500 normal Not Available [facility] [place] [facility] [address], [place], [address], 07/29/2021 12:51:20 07/28/20 21 07/29/2021 CBC (INCL UDES DIFF/ PLT) absolute basophils 98 cells /uL 0-200 normal Not Available [facility] [address], [place], [address], 07/29/2021 12:51:20 07/28/20 21 07/29/2021 CBC (INCL UDES DIFF/ PLT) neutrophils 54.2 % normal Not Available [facility] [address], [place], [address], 07/29/2021 12:51:20 07/28/20 21 07/29/2021 CBC (INCL UDES DIFF/ PLT) lymphocytes 30.7 % normal Not Available [facility] [address] [place], [address], 07/29/2021 12:51:20 07/28/20 21 07/29/2021 CBC (INCL UDES DIFF/ PLT) monocytes 6.3 % normal Not Available [facility] [place] [facility] [address] [facility], [place], [address], 07/29/2021 12:51:20 07/28/20 21 07/29/2021 CBC (INCL UDES DIFF/ PLT) eosinophils 7.3 % normal Not Available [facility] [address] [place], [address], 07/29/2021 12:51:20 07/28/20 21 07/29/2021 CBC (INCL UDES DIFF/ PLT) basophils 1.5 % normal Not Available [facility] [address] [place], [address], 07/29/2021 12:51:20 09/26/19 23 09/27/2022 ALBUM IN, RANDO M URINE W/CRE ATINI NE creatinine, random urine 62 mg/dL 20-275 normal Not Available [facility] [address] [facility], [place], [address], 09/27/2022 16:01:51 09/26/19 23 09/27/2022 ALBUM IN, RANDO M URINE W/CRE ATINI NE albumin, urine 0.3 mg/dL see note: normal Refer ence Range : Refer ence Range Not estab lishe d Not Available [facility] [address] [place], [address], 09/27/2022 16:01:51 09/26/19 23 09/27/2022 ALBUM IN, RANDO M URINE W/CRE ATINI NE albumin/crea tinine ratio, random urine 5 mcg/m g_cre at <30 normal The ADA defin es abnor malit ies in album in excre tion as follo ws: Album inuri a Categ ory Resul t (mcg/ mg creat inine ) Leandra l to Mildl y incre ased <30 Moder ately incre ased 30-29 9 Sever radha incre ased > OR = 300 The ADA recom mends that at least two of three speci mens colle cted withi n a 3-6 month perio d be abnor mal befor e consi valeria g a patie nt to be withi n a diagn ostic categ ory. Not Available [facility] [address] [facility], [place], [address], 09/27/2022 16:01:51 09/26/19 23 09/27/2022 LIPID PANEL , STAND LILLIE cholesterol, total 193 mg/dL <200 normal Not Available [facility] [address] [facility], [place], [address], 09/27/2022 16:01:52 09/26/19 23 09/27/2022 LIPID PANEL , STAND LILLIE HDL cholesterol 52 mg/dL > or = 50 normal Not Available [facility] [address] [facility], [place], [address], 09/27/2022 16:01:52 09/26/19 23 09/27/2022 LIPID PANEL , STAND LILLIE triglyceride s 157 mg/dL <150 high Not Available [facility] [address] [facility], [place], [address], 09/27/2022 16:01:52 09/26/19 23 09/27/2022 LIPID PANEL , STAND LILLIE LDL-choleste rol 114 mg/dL _(tara c) high Refer ence range : <100 Jorge able range <100 mg/dL for prima ry preve ntion ; <70 mg/dL for patie nts with CHD or diabe tic patie nts with > or = 2 CHD risk facto rs. LDL-C is now calcu lated using the Heather n-Hop kins calcu nisreen n, which is a valid ated novel metho d provi ding marek r accur acy than the Fried armani almodovarat ion in the estim ation of LDL-C . Heather n SS et al. JOHAN. 2013; 310(1 9): 2061- 2068 (http ://ed ucati on.Qu Rosi yomaira640 Labs. com/f aq/FA Q164) Not Available [facility] [place] [facility] [address] [facility], [place], [address], 09/27/2022 16:01:52 09/26/19 23 09/27/2022 LIPID PANEL , STAND LILLIE chol/HDLC ratio 3.7 (calc ) <5.0 normal Not Available [facility] [place] [facility] [address] [facility], [place], [address], 09/27/2022 16:01:52 09/26/19 23 09/27/2022 LIPID PANEL , STAND LILLIE non HDL cholesterol 141 mg/dL _(tara c) <130 high For patie nts with diabe alissa plus 1 major ASCVD risk facto r, treat ing to a non-H DL-C goal of <100 mg/dL (LDL- C of <70 mg/dL ) is lissettei marcy peña n. Not Available [facility] [place] [facility] [address] [facility], [place], [address], 09/27/2022 16:01:52 09/26/19 23 09/27/2022 COMPR EHENS ROSALBA METAB OLIC PANEL glucose 95 mg/dL 65-99 normal Fasti ng refer ence inter le Not Available [facility] [place] [facility] [address], [place], [address], 09/27/2022 16:01:52 09/26/19 23 09/27/2022 COMPR EHENS ROSALBA METAB OLIC PANEL urea nitrogen (BUN) 15 mg/dL 7-25 normal Not Available [facility] [place] [facility] [address], [place], [address], 09/27/2022 16:01:52 09/26/19 23 09/27/2022 COMPR EHENS ROSALBA METAB OLIC PANEL creatinine 0.84 mg/dL 0.50-1 .05 normal Not Available [facility] [address] [place], [address], 09/27/2022 16:01:52 09/26/19 23 09/27/2022 COMPR EHENS ROSALBA METAB OLIC PANEL eGFR 75 mL/mi n/1.7 3m2 > or = 60 normal The eGFR is based on the CKD-E PI 2020 equat ion. To calcu late the new eGFR from a previ ous Creat inine or Cysta tin C resul t, go to https ://aspen shoemaker.o cam/gilbert doss s/ kdoqi /gfr% 5Fcal culat or Not Available [facility] [address] [place], [address], 09/27/2022 16:01:52 09/26/19 23 09/27/2022 COMPR EHENS ROSALBA METAB OLIC PANEL BUN/creatini ne ratio NOT APPLIC ABLE (calc ) 6-22 Not Available [facility] [address] [place], [address], 09/27/2022 16:01:52 09/26/19 23 09/27/2022 COMPR EHENS ROSALBA METAB OLIC PANEL sodium 138 mmol/ L 135-14 6 normal Not Available [facility] [address] [place], [address], 09/27/2022 16:01:52 09/26/19 23 09/27/2022 COMPR EHENS ROSALBA METAB OLIC PANEL potassium 4.3 mmol/ L 3.5-5. 3 normal Not Available [facility] [address] [place], [address], 09/27/2022 16:01:52 09/26/19 23 09/27/2022 COMPR EHENS ROSALBA METAB OLIC PANEL chloride 102 mmol/ L 98-110 normal Not Available [facility] [address] [place], [place] [address], [address], 09/27/2022 16:01:52 09/26/19 23 09/27/2022 COMPR EHENS ROSALBA METAB OLIC PANEL carbon dioxide 29 mmol/ L 20-32 normal Not Available [facility] [address] [place], [place] [address], [address], 09/27/2022 16:01:52 09/26/19 23 09/27/2022 COMPR EHENS ROSALBA METAB OLIC PANEL calcium 9.7 mg/dL 8.6-10 .4 normal Not Available [facility] [address] [facility] [place], [address], 09/27/2022 16:01:52 09/26/19 23 09/27/2022 COMPR EHENS ROSALBA METAB OLIC PANEL protein, total 6.8 g/dL 6.1-8. 1 normal Not Available [address] [place], [address], 09/27/2022 16:01:52 09/26/19 23 09/27/2022 COMPR EHENS ROSALBA METAB OLIC PANEL albumin 4.0 g/dL 3.6-5. 1 normal Not Available [facility] [address] [place], [place] [address], [address], 09/27/2022 16:01:52 09/26/19 23 09/27/2022 COMPR EHENS ROSALBA METAB OLIC PANEL globulin 2.8 g/dL_ (calc ) 1.9-3. 7 normal Not Available [facility] [address] [place], [place] [address], [address], 09/27/2022 16:01:52 09/26/19 23 09/27/2022 COMPR EHENS ROSALBA METAB OLIC PANEL albumin/glob ulin ratio 1.4 (calc ) 1.0-2. 5 normal Not Available [facility] [address] [place], [address], 09/27/2022 16:01:52 09/26/19 23 09/27/2022 COMPR EHENS ROSALBA METAB OLIC PANEL bilirubin, total 0.5 mg/dL 0.2-1. 2 normal Not Available [facility] [address] [place], [address], 09/27/2022 16:01:52 09/26/19 23 09/27/2022 COMPR EHENS ROSALBA METAB OLIC PANEL alkaline phosphatase 111 U/L 37-153 normal Not Available [facility] [address] [place], [address], 09/27/2022 16:01:52 09/26/19 23 09/27/2022 COMPR EHENS ROSALBA METAB OLIC PANEL AST 15 U/L 10-35 normal Not Available [facility] [address] [place], [address], 09/27/2022 16:01:52 09/26/19 23 09/27/2022 COMPR EHENS ROSALBA METAB OLIC PANEL ALT 16 U/L 6-29 normal Not Available [facility] [address] [place], [address], 09/27/2022 16:01:52 09/26/19 23 09/27/2022 HEMOG LOBIN A1C hemoglobin A1C 6.1 %_of_ total _HGB <5.7 high For someo ne witho ut known diabe alissa, a hemog lobin A1c value betwe en 5.7% and 6.4% is consi stent with predi abete s and shoul d be confi rmed with a follo w-up test. For someo ne with known diabe alissa, a value <7% indic ates that their diabe alissa is well contr olled . A1c targe ts shoul d be indiv idual ized based on durat ion of diabe alissa, age, comor bid condi tions , and other consi derat ions. This assay resul t is consi stent with an incre ased risk of diabe alissa. Curre ntly, no conse nsus exist s regar cassius use of hemog lobin A1c for diagn osis of diabe alissa for child [place]. Not Available [facility] [place] [facility] [address] [place], [address], 09/27/2022 16:01:53 09/26/19 23 09/27/2022 TSH TSH 1.12 mIU/L 0.40-4 .50 normal Not Available [facility] [place] [facility] [address] [place], [address], 09/27/2022 16:01:53 09/26/19 23 09/27/2022 CBC (INCL UDES DIFF/ PLT) white blood cell count 7.6 thous and/u L 3.8-10 .8 normal Not Available [facility] [place] [facility] [address] [place], [address], 09/27/2022 16:01:53 09/26/19 23 09/27/2022 CBC (INCL UDES DIFF/ PLT) red blood cell count 5.16 liu on/uL 3.80-5 .10 high Not Available [facility] [place] [facility] [address] [place], [address], 09/27/2022 16:01:53 09/26/19 23 09/27/2022 CBC (INCL UDES DIFF/ PLT) hemoglobin 13.3 g/dL 11.7-1 5.5 normal Not Available [facility] [place] [facility] [address] [place], [address], 09/27/2022 16:01:53 09/26/19 23 09/27/2022 CBC (INCL UDES DIFF/ PLT) hematocrit 42.7 % 35.0-4 5.0 normal Not Available [facility] [place] [facility] [address] [place], [place] [address], [place], [address], 09/27/2022 16:01:53 09/26/19 23 09/27/2022 CBC (INCL UDES DIFF/ PLT) MCV 82.8 fL 80.0-1 00.0 normal Not Available [facility] [place] [facility] [address] [place], [place] [address], [place], [address], 09/27/2022 16:01:53 09/26/19 23 09/27/2022 CBC (INCL UDES DIFF/ PLT) MCH 25.8 pg 27.0-3 3.0 low Not Available [facility] [place] [facility] [address] [facility] [place], [address], 09/27/2022 16:01:53 09/26/19 23 09/27/2022 CBC (INCL UDES DIFF/ PLT) MCHC 31.1 g/dL 32.0-3 6.0 low Not Available [facility] [place] [facility] [address] [place], [place] [address], [address], 09/27/2022 16:01:53 09/26/19 23 09/27/2022 CBC (INCL UDES DIFF/ PLT) RDW 14.0 % 11.0-1 5.0 normal Not Available [facility] [place] [facility] [address] [place], [place] [address], [address], 09/27/2022 16:01:53 09/26/19 23 09/27/2022 CBC (INCL UDES DIFF/ PLT) platelet count 367 thous and/u L 140-40 0 normal Not Available [facility] [place] [facility] [address] [place], [place] [address]christieLifePoint [place], [address], 09/27/2022 16:01:53 09/26/19 23 09/27/2022 CBC (INCL UDES DIFF/ PLT) MPV 11.1 fL 7.5-12 .5 normal Not Available [facility] [place] [facility] [address], [place], [address], 09/27/2022 16:01:53 09/26/19 23 09/27/2022 CBC (INCL UDES DIFF/ PLT) absolute neutrophils 4362 cells /uL 1500-7 800 normal Not Available [facility] [place] [facility] [address], [place], [address], 09/27/2022 16:01:53 09/26/19 23 09/27/2022 CBC (INCL UDES DIFF/ PLT) absolute lymphocytes 2348 cells /uL 850-39 00 normal Not Available [facility] [place] [facility] [address], [place], [address], 09/27/2022 16:01:53 09/26/19 23 09/27/2022 CBC (INCL UDES DIFF/ PLT) absolute monocytes 448 cells /uL 200-95 0 normal Not Available [facility] [place] [facility] [address], [place], [address], 09/27/2022 16:01:53 09/26/19 23 09/27/2022 CBC (INCL UDES DIFF/ PLT) absolute eosinophils 357 cells /uL 15-500 normal Not Available [facility] [place] [facility] [address], [place], [address], 09/27/2022 16:01:53 09/26/19 23 09/27/2022 CBC (INCL UDES DIFF/ PLT) absolute basophils 84 cells /uL 0-200 normal Not Available [facility] [place] [facility] [address], [place], [address], 09/27/2022 16:01:53 09/26/19 23 09/27/2022 CBC (INCL UDES DIFF/ PLT) neutrophils 57.4 % normal Not Available [facility] [place] [facility] [address], [place], [address], 09/27/2022 16:01:53 09/26/19 23 09/27/2022 CBC (INCL UDES DIFF/ PLT) lymphocytes 30.9 % normal Not Available [facility] [place] [facility] [address] [place], [address], 09/27/2022 16:01:53 09/26/19 23 09/27/2022 CBC (INCL UDES DIFF/ PLT) monocytes 5.9 % normal Not Available [facility] [place] [facility] [address] [place], [address], 09/27/2022 16:01:53 09/26/19 23 09/27/2022 CBC (INCL UDES DIFF/ PLT) eosinophils 4.7 % normal Not Available [facility] [place] [facility] [address] [place], [address], 09/27/2022 16:01:53 09/26/19 23 09/27/2022 CBC (INCL UDES DIFF/ PLT) basophils 1.1 % normal Not Available [facility] [place] [facility] [address] [place], [address], 09/27/2022 16:01:53 09/26/19 23 09/27/2022 HEPAT ITIS C AB W/REF L TO HCV RNA, QN, PCR hepatitis C antibody NON-RE ACTIVE non-re active normal Not Available [facility] [place] [facility] [address] [place], [address], 09/27/2022 16:01:54 09/26/19 23 09/27/2022 HEPAT ITIS C AB W/REF L TO HCV RNA, QN, PCR index 0.11 <1.00 normal HCV antib alysha was non-r eacti ve. There is no labor atory evide nce of HCV infec tion. In most cases , no furth er actio n is requi red. Howev er, if recen t HCV expos ure is suspe cted, a test for HCV RNA (test code 38873 ) is sugge sted. For addit ional infor soto kednall e refer to http: //joshua irving ics.c om/fa q/FAQ 22v1 (This link is being provi ded for infor soto العراقي/ angelina shankar only. ) Not Available [facility] [place] [facility] [address] [facility] [place], [address], 09/27/2022 16:01:54 09/28/19 23 09/28/2022 urina lysis , dipst ick Leukocytes Negati ve Not Available [facility] [address] [place], [address], 09/28/2022 16:06:58 09/28/19 23 09/28/2022 urina lysis , dipst ick Nitrite negati ve Not Available [facility] [address] [place], [address], 09/28/2022 16:06:58 09/28/19 23 09/28/2022 urina lysis , dipst ick Urobilinogen .2 Not Available [facility] [address] [place], [address], 09/28/2022 16:06:58 09/28/19 23 09/28/2022 urina lysis , dipst ick Protein Negati ve Not Available [facility] [address] [place], [address], 09/28/2022 16:06:58 09/28/19 23 09/28/2022 urina lysis , dipst ick pH 6.0 Not Available [facility] [address] [place], [address], 09/28/2022 16:06:58 09/28/19 23 09/28/2022 urina lysis , dipst ick Blood Negati ve Not Available [facility] [address] [place], [address], 09/28/2022 16:06:58 09/28/19 23 09/28/2022 urina lysis , dipst ick [facility] [place] 1.015 Not Available [address], [address], 09/28/2022 16:06:58 09/28/19 23 09/28/2022 urina lysis , dipst ick Ketone Negati ve Not Available [facility] [address] [place], [address], 09/28/2022 16:06:58 09/28/19 23 09/28/2022 urina lysis , dipst ick Bilirubin Negati ve Not Available [address], [address], 09/28/2022 16:06:58 09/28/19 23 09/28/2022 urina lysis , dipst ick Glucose Negati ve Not Available [facility] [address] [place], [address], 09/28/2022 16:06:58 10/13/19 23 10/13/2022 nonin vasiv e color ectal cance r DNA + occul t blood scree navid, QL, stool cologuard negati ve normal Not Available [facility] (Cologuard Orders Only) [address], [place], [address], 10/20/2022 18:08:20 04/06/20 23 04/07/2023 ALBUM IN, RANDO M URINE W/CRE ATINI NE creatinine, random urine 73 mg/dL 20-275 normal Not Available [facility] [address] [facility], [place], [address], 04/07/2023 10:37:47 04/06/20 23 04/07/2023 ALBUM IN, RANDO M URINE W/CRE ATINI NE albumin, urine 0.4 mg/dL see note: normal Refer ence Range : Refer ence Range Not estab lishe d Not Available [facility] [address] [facility] [place], [address], 04/07/2023 10:37:47 04/06/20 23 04/07/2023 ALBUM IN, RANDO M URINE W/CRE ATINI NE albumin/crea tinine ratio, random urine 5 mcg/m g_cre at <30 normal The ADA defin es abnor malit ies in album in excre tion as follo ws: Album inuri a Categ ory Resul t (mcg/ mg creat inine ) Leandra l to Mildl y incre ased <30 Moder ately incre ased 30-29 9 Sever radha incre ased > OR = 300 The ADA recom mends that at least two of three speci mens colle cted withi n a 3-6 month perio d be abnor mal befor e consi valeria g a patie nt to be withi n a diagn ostic categ ory. Not Available [facility] [address] [facility], [place], [address], 04/07/2023 10:37:47 04/06/20 23 04/07/2023 LIPID PANEL , STAND LILLIE cholesterol, total 161 mg/dL <200 normal Not Available [facility] [address] [place], [address], 04/07/2023 10:37:48 04/06/20 23 04/07/2023 LIPID PANEL , STAND LILLIE HDL cholesterol 55 mg/dL > or = 50 normal Not Available [facility] [address] [place], [address], 04/07/2023 10:37:48 04/06/20 23 04/07/2023 LIPID PANEL , STAND LILLIE triglyceride s 123 mg/dL <150 normal Not Available [facility] [address] [facility] [place], [address], 04/07/2023 10:37:48 04/06/20 23 04/07/2023 LIPID PANEL , STAND LILLIE LDL-choleste rol 84 mg/dL _(tara c) normal Refer ence range : <100 Jorge able range <100 mg/dL for prima ry preve ntion ; <70 mg/dL for patie nts with CHD or diabe tic patie nts with > or = 2 CHD risk facto rs. LDL-C is now calcu lated using the Heather n-Hop kins calcu latreno n, which is a valid ated novel metho d provi ding marek r accur acy than the Fried armani equat ion in the estim ation of LDL-C . Heather ornelas SS et al. JOHAN. 2013; 310(1 9): 2061- 2068 (http ://ed ucati on.Qu yosiEcoLogicLiving. com/f aq/FA Q164) Not Available [facility] [address] [facility], [place], [address], 04/07/2023 10:37:48 04/06/20 23 04/07/2023 LIPID PANEL , STAND LILLIE chol/HDLC ratio 2.9 (calc ) <5.0 normal Not Available [facility] [address] [facility] [place], [address], 04/07/2023 10:37:48 04/06/20 23 04/07/2023 LIPID PANEL , STAND LILLIE non HDL cholesterol 106 mg/dL _(tara c) <130 normal For patie nts with diabe alissa plus 1 major ASCVD risk facto r, treat ing to a non-H DL-C goal of <100 mg/dL (LDL- C of <70 mg/dL ) is consi marcy vargaso n. Not Available [facility] [address], [place], [address], 04/07/2023 10:37:48 04/06/20 23 04/07/2023 COMPR EHENS ROSALBA METAB OLIC PANEL glucose 100 mg/dL 65-99 high Fasti ng refer ence inter le For someo ne witho ut known diabe alissa, a gluco se value betwe en 100 and 125 mg/dL is consi stent with predi abete s and shoul d be confi rmed with a follo w-up test. Not Available [facility] [address] [place], [address], 04/07/2023 10:37:48 04/06/20 23 04/07/2023 COMPR EHENS ROSALBA METAB OLIC PANEL urea nitrogen (BUN) 19 mg/dL 7-25 normal Not Available [facility] [address] [place], [address], 04/07/2023 10:37:48 04/06/20 23 04/07/2023 COMPR EHENS ROSALBA METAB OLIC PANEL creatinine 0.82 mg/dL 0.60-1 .00 normal Not Available [facility] [address] [place], [address], 04/07/2023 10:37:48 04/06/20 23 04/07/2023 COMPR EHENS ROSALBA METAB OLIC PANEL eGFR 77 mL/mi n/1.7 3m2 > or = 60 normal The eGFR is based on the CKD-E PI 2020 equat ion. To calcu late the new eGFR from a previ ous Creat inine or Cysta tin C resul t, go to https ://aspen douglass.elvira shoemaker.o cam/gilbert doss s/ kdoqi /gfr% 5Fcal culat or Not Available [facility] [address] [place], [address], 04/07/2023 10:37:48 04/06/20 23 04/07/2023 COMPR EHENS ROSALBA METAB OLIC PANEL BUN/creatini ne ratio NOT APPLIC ABLE (calc ) 6-22 Not Available [facility] [address] [place], [address], 04/07/2023 10:37:48 04/06/20 23 04/07/2023 COMPR EHENS ROSALBA METAB OLIC PANEL sodium 141 mmol/ L 135-14 6 normal Not Available [facility] [address] [facility] [place], [address], 04/07/2023 10:37:48 04/06/20 23 04/07/2023 COMPR EHENS ROSALBA METAB OLIC PANEL potassium 4.0 mmol/ L 3.5-5. 3 normal Not Available [facility] [address] [place], [address], 04/07/2023 10:37:48 04/06/20 23 04/07/2023 COMPR EHENS ROSALBA METAB OLIC PANEL chloride 106 mmol/ L 98-110 normal Not Available [facility] [address] [place], [address], 04/07/2023 10:37:48 04/06/20 23 04/07/2023 COMPR EHENS ROSALBA METAB OLIC PANEL carbon dioxide 29 mmol/ L 20-32 normal Not Available [facility] [address] [place], [address], 04/07/2023 10:37:48 04/06/20 23 04/07/2023 COMPR EHENS ROSALBA METAB OLIC PANEL calcium 9.8 mg/dL 8.6-10 .4 normal Not Available [facility] [address] [place], [address], 04/07/2023 10:37:48 04/06/20 23 04/07/2023 COMPR EHENS ROSALBA METAB OLIC PANEL protein, total 6.9 g/dL 6.1-8. 1 normal Not Available [facility] [address] [place], [address], 04/07/2023 10:37:48 04/06/20 23 04/07/2023 COMPR EHENS ROSALBA METAB OLIC PANEL albumin 4.0 g/dL 3.6-5. 1 normal Not Available [facility] [address] [place], [address], 04/07/2023 10:37:48 04/06/20 23 04/07/2023 COMPR EHENS ROSALBA METAB OLIC PANEL globulin 2.9 g/dL_ (calc ) 1.9-3. 7 normal Not Available [facility] [address] [place], [address], 04/07/2023 10:37:48 04/06/20 23 04/07/2023 COMPR EHENS ROSALBA METAB OLIC PANEL albumin/glob ulin ratio 1.4 (calc ) 1.0-2. 5 normal Not Available [facility] [address] [place], [address], 04/07/2023 10:37:48 04/06/20 23 04/07/2023 COMPR EHENS ROSALBA METAB OLIC PANEL bilirubin, total 0.5 mg/dL 0.2-1. 2 normal Not Available [facility] [address] [place], [address], 04/07/2023 10:37:48 04/06/20 23 04/07/2023 COMPR EHENS ROSALBA METAB OLIC PANEL alkaline phosphatase 104 U/L 37-153 normal Not Available [facility] [address] [place], [address], 04/07/2023 10:37:48 04/06/20 23 04/07/2023 COMPR EHENS ROSALBA METAB OLIC PANEL AST 16 U/L 10-35 normal Not Available [facility] [address] [place], [address], 04/07/2023 10:37:48 04/06/20 23 04/07/2023 COMPR EHENS ROSALBA METAB OLIC PANEL ALT 14 U/L 6-29 normal Not Available [facility] [address] [place], [address], 04/07/2023 10:37:48 04/06/2004/07/2023 HEMOG LOBIN A1C hemoglobin A1C 6.6 %_of_ total _HGB <5.7 high For someo ne witho ut known diabe alissa, a hemog lobin A1c value of 6.5% or great er indic ates that they may have diabe alissa and this shoul d be confi rmed with a follo w-up test. For someo ne with known diabe alissa, a value <7% indic ates that their diabe alissa is well contr olled and a value great er than or equal to 7% indic ates subop timal contr ol. A1c targe ts shoul d be indiv idual ized based on durat ion of diabe alissa, age, comor bid condi tions , and other consi derat ions. Curre ntly, no conse nsus exist s neda hammonds use of hemog lobin A1c for diagn osis of diabe alissa for child [place]. Not Available [facility] [address] [place], [address], 04/07/2023 10:37:49 04/06/2004/07/2023 TSH TSH 0.07 mIU/L 0.40-4 .50 low Not Available [facility] [address] [place], [address], 04/07/2023 10:37:49 04/06/2004/07/2023 CBC (INCL UDES DIFF/ PLT) white blood cell count 6.0 thous and/u L 3.8-10 .8 normal Not Available [facility] [address] [place], [address], 04/07/2023 10:37:50 04/06/20 23 04/07/2023 CBC (INCL UDES DIFF/ PLT) red blood cell count 4.83 liu on/uL 3.80-5 .10 normal Not Available [facility] [address] [place], [address], 04/07/2023 10:37:50 04/06/20 23 04/07/2023 CBC (INCL UDES DIFF/ PLT) hemoglobin 12.7 g/dL 11.7-1 5.5 normal Not Available [facility] [address] [place], [address], 04/07/2023 10:37:50 04/06/2004/07/2023 CBC (INCL UDES DIFF/ PLT) hematocrit 41.1 % 35.0-4 5.0 normal Not Available [facility] [address] [place], [address], 04/07/2023 10:37:50 04/06/20 23 04/07/2023 CBC (INCL UDES DIFF/ PLT) MCV 85.1 fL 80.0-1 00.0 normal Not Available [facility] [address] [place], [address], 04/07/2023 10:37:50 04/06/2004/07/2023 CBC (INCL UDES DIFF/ PLT) MCH 26.3 pg 27.0-3 3.0 low Not Available [facility] [address] [place], [address], 04/07/2023 10:37:50 04/06/20 23 04/07/2023 CBC (INCL UDES DIFF/ PLT) MCHC 30.9 g/dL 32.0-3 6.0 low Not Available [facility] [address] [place], [address], 04/07/2023 10:37:50 04/06/20 23 04/07/2023 CBC (INCL UDES DIFF/ PLT) RDW 14.3 % 11.0-1 5.0 normal Not Available [facility] [address] [facility] [place], [address], 04/07/2023 10:37:50 04/06/20 23 04/07/2023 CBC (INCL UDES DIFF/ PLT) platelet count 266 thous and/u L 140-40 0 normal Not Available [facility] [address] [place], [place] [address], [address], 04/07/2023 10:37:50 04/06/20 23 04/07/2023 CBC (INCL UDES DIFF/ PLT) MPV 10.8 fL 7.5-12 .5 normal Not Available [facility] [address] [place], [place] [address], [address], 04/07/2023 10:37:50 04/06/20 23 04/07/2023 CBC (INCL UDES DIFF/ PLT) absolute neutrophils 3072 cells /uL 1500-7 800 normal Not Available [facility] [address] [place], [place] [address], [address], 04/07/2023 10:37:50 04/06/20 23 04/07/2023 CBC (INCL UDES DIFF/ PLT) absolute lymphocytes 2166 cells /uL 850-39 00 normal Not Available [facility] [address] [place], [place] [address], [address], 04/07/2023 10:37:50 04/06/20 23 04/07/2023 CBC (INCL UDES DIFF/ PLT) absolute monocytes 402 cells /uL 200-95 0 normal Not Available [facility] [address] [place], [place] [address], [place], [address], 04/07/2023 10:37:50 04/06/20 23 04/07/2023 CBC (INCL UDES DIFF/ PLT) absolute eosinophils 282 cells /uL 15-500 normal Not Available [facility] [address] [place], [address], 04/07/2023 10:37:50 04/06/20 23 04/07/2023 CBC (INCL UDES DIFF/ PLT) absolute basophils 78 cells /uL 0-200 normal Not Available [facility] [address] [place], [address], 04/07/2023 10:37:50 04/06/20 23 04/07/2023 CBC (INCL UDES DIFF/ PLT) neutrophils 51.2 % normal Not Available [facility] [address] [place], [address], 04/07/2023 10:37:50 04/06/20 23 04/07/2023 CBC (INCL UDES DIFF/ PLT) lymphocytes 36.1 % normal Not Available [facility] [address] [place], [address], 04/07/2023 10:37:50 04/06/20 23 04/07/2023 CBC (INCL UDES DIFF/ PLT) monocytes 6.7 % normal Not Available [facility] [address] [place], [address], 04/07/2023 10:37:50 04/06/20 23 04/07/2023 CBC (INCL UDES DIFF/ PLT) eosinophils 4.7 % normal Not Available [facility] [address] [facility] [place], [address], 04/07/2023 10:37:50 04/06/20 23 04/07/2023 CBC (INCL UDES DIFF/ PLT) basophils 1.3 % normal Not Available [facility] [address] [facility] [place], [address], 04/07/2023 10:37:50 Result Notes None recorded. Problems Name Problem SNOMED Code Status Onset Date Resolution Date Notes Provider Name and Address Organization Details Recorded Time Hypothyroidism 68200942 Andi South MD [address] [address], [facility] 5 22:52:23 Malaise and fatigue [id number] Andi South MD [address] [address], [facility] 3 13:20:05 Bypass complications Active Mary Ann South MD [address] [address], [facility] 3 13:20:05 Tooth disorder [id number] Andi South MD [address] [address], [facility] 3 13:20:05 Blood glucose outside reference range [id number] Andi South MD [address] [address], [facility] 5 13:14:48 Disorder of shoulder [id number] Andi South MD [address] [address], [facility] 3 13:20:05 Obesity [id number] Andi South MD [address] [address], [facility] 5 23:26:02 Acute sinusitis [id number] Andi South MD [address] [address], [facility] 5 11:03:47 Hyperlipidemia 46329547 Andi South MD [address] [address], [place] - [facility] 5 23:26:02 Iron deficiency anemia 25119001 Active Mary Ann South MD [address] [address], [place], [place], [address] [place] [address], [place] [facility] 5 09:32:43 Disorder of urinary tract 05882166 Active Mary Ann South MD [address], [address] [place] [address], [place] [facility] 5 23:26:02 Problem Notes None recorded. Procedures Surgical History Date Name Laterality Status Provider Name and Address Organization Details Recorded Time 06/12/20 17 Cerumen Removal completed Mary Ann South MD [address], [address] [place] [address], [facility] 06/12/2017 11:59:41 09/24/19 12 Colonoscopy completed Mary Ann South MD [address] [address], [place], [place], [address] [place] [address], [facility] 08/26/2013 13:20:07 09/24/19 04 Other completed Mary Ann South MD [address], [address] [place] [address], [facility] 08/26/2013 13:20:07 09/24/18 93 Hysterectomy completed Mary Ann South MD [address], [address] [place] [address], [facility] 08/29/2017 21:54:38 09/24/18 86 Other completed [facility] 08/26/2013 11:28:19 09/24/18 85 Tubal Ligation completed [facility] 08/26/2013 11:28:19 09/24/18 77 Other completed [facility] 08/26/2013 11:28:19 09/24/18 70 Appendectomy completed [facility] 08/26/2013 11:28:19 Other completed [facility] 08/26/2013 11:28:19 Other completed [facility] 08/26/2013 11:28:19 Imaging Results None recorded. Procedure Notes None recorded. Medical Equipment None Reported. Allergies Allergen ID Allergen Name Allergen Category Reaction Reaction Severity Criticality Documentation Date Start Date Code Code System Note Provider Name and Address Organization Details Recorded Time 40773 Product containin g penicilli n (product) medicatio n Not available Not available Not available 08/26/2013 68720 8001 SNOMED [facility] 3 11:28:20 05222 Substance with sulfonami de structure and antibacte rial mechanism of action (substanc e) medicatio n Not available Not available Not available 08/26/2013 51227 8003 SNOMED [facility] 3 11:28:20 33541 nitrofura ntoin medicatio n rash moderate Not available 12/03/2018 7454 RxNorm Mary Ann South MD [address] [place] [address], [facility], [address], [place] [facility] 9 14:10:37 Medications Name Sig Start Date Stop Date Status Note LastModified by Organization Details LastModified Time metformin 500 mg tablet TAKE 1 TABLET BY MOUTH TWICE DAILY WITH MEALS active Not Available Not Available No t Available oxybutynin chloride ER 10 mg tablet,exte nded release 24 hr TAKE 1 TABLET BY MOUTH ONCE DAILY IN THE EVENING active Not Available Not Available No t Available azithromyci n 250 mg tablet Take 2 tablets (500 mg) by oral route once daily for 1 day then 1 tablet (250 mg) by oral route once daily for 4 days 2014 active Not Available Not Available Not Avai lable pravastatin 40 mg tablet Take 1 tablet by mouth once daily active Not Available Not Available No t Available Accu-Chek Softclix Lancets USE 1 LANCET TO CHECK GLUCOSE ONCE DAILY active Not Available Not Available No t Available meclizine 12.5 mg tablet Take 1 tablet 3 times a day by oral route as needed. 07/12 completed Not Available Not Available Not Available phentermine 37.5 mg tablet TAKE 1 TABLET BY MOUTH ONCE DAILY NEEDED 09/28 completed Not Available Not Available Not Available aspirin 81 mg tablet,jah yed release Take 1 tablet twice a week by oral route. 09/28 completed Not Available Not Available Not Available levothyroxi ne 100 mcg tablet Take 1 tablet by mouth once daily active Not Available Not Available No t Available levothyroxi ne 125 mcg tablet TAKE 1 TABLET BY MOUTH IN THE MORNING 04/10 completed Not Available Not Available Not Available gabapentin 300 mg capsule TAKE ONE TO TWO CAPSULES BY MOUTH IN THE EVENING FOR LEG PAIN 08/15 completed Not Available Not Available Not Available dexamethaso ne sodium phosphate 4 mg/mL injection solution Take 1 mL by injection route. 06/12 completed Not Available Not Available Not Available methylpredn isolone 4 mg tablets in a dose pack Take by oral route as directed 06/13 completed Not Available Not Available Not Available fluoxetine 20 mg capsule Take 1 capsule by mouth once daily 08/02 completed Not Available Not Available Not Available fluticasone propionate 50 mcg/actuati on nasal spray,suspe nsion [place] 1 spray every day by intranasa l route. 05/04 completed Not Available Not Available Not Available Premarin 0.625 mg tablet Take 1 tablet every day by oral route. active Not Available Not Available No t Available nitrofurant oin monohydrate /macrocryst als 100 mg capsule Take 1 capsule every 12 hours by oral route for 5 days. 11/12 completed Not Available Not Available Not Available Vesicare 10 mg tablet TAKE 1 TABLET BY MOUTH ONCE DAILY 12/03 completed Not Available Not Available Not Available vitamin E 1 PO daily OTC 09/28 completed Not Available Not Available Not Available multivitami n 1 PO daily 05/04 completed Not Available Not Available Not Available Toviaz 8 mg tablet,exte nded release Take 1 tablet every day by oral route. active Not Available Not Available No t Available levothyroxi ne 137 mcg capsule Take 1 capsule every day by oral route. active Not Available Not Available No t Available Vitamin D3 125 mcg (5,000 unit) tablet Take 1 tablet every day by oral route. 09/28 completed Not Available Not Available Not Available Accu-Chek Dayna Plus test strips USE 1 STRIP TO CHECK GLUCOSE ONCE DAILY active Not Available Not Available No t Available Accu-Chek Dayna Plus Meter USE DIRECTED active Not Available Not Available No t Available Myrbetriq 50 mg tablet,exte nded release Take 1 tablet every day by oral route as needed. 09/28 completed Not Available Not Available Not Available Victoza 3-Farhat 0.6 mg/0.1 mL (18 mg/3 mL) subcutaneou s pen injector Inject 0.1 mL every day by subcutane ous route for 30 days. 04/10 completed Not Available Not Available Not Available Ozempic 0.25 mg or 0.5 mg (2 mg/1.5 mL) subcutaneou s pen injector Inject 0.25 mg every week by subcutane ous route for 28 days. 2022 active Not Available Not Available Not Avai lable Vitals Date Recorded Body height Body mass index (BMI) Body weight Heart rate Oxygen saturation Oxygen saturation in Arterial blood by Pulse oximetry Body temperature Systolic blood pressure Diastolic blood pressure Provider Name and Address Organization Details Last Updated DateTime 3 163.83 cm 38.1 kg/m2 851062. 08 g 86 /min 96 % 96 % 97.9 [degF] 129 mm[Hg] 74 mm[Hg] [facility] 3 14:43:22 Date Recorded Body height Body mass index (BMI) Body weight Heart rate Oxygen saturation Oxygen saturation in Arterial blood by Pulse oximetry Body temperature Systolic blood pressure Diastolic blood pressure Provider Name and Address Organization Details Last Updated DateTime 1 163.83 cm 40.7 kg/m2 887109. 76 g 84 /min 98 % 98 % 97.4 [degF] 122 mm[Hg] 84 mm[Hg] [facility] 1 14:41:11 Date Recorded Body height Body mass index (BMI) Body weight Heart rate Oxygen saturation Oxygen saturation in Arterial blood by Pulse oximetry Body temperature Systolic blood pressure Diastolic blood pressure Provider Name and Address Organization Details Last Updated DateTime 3 163.83 cm 38.4 kg/m2 795797. 17 g 81 /min 98 % 98 % 98.2 [degF] 134 mm[Hg] 87 mm[Hg] [facility] 3 10:56:19 Date Recorded Body height Body mass index (BMI) Body weight Heart rate Oxygen saturation Oxygen saturation in Arterial blood by Pulse oximetry Body temperature Systolic blood pressure Diastolic blood pressure Provider Name and Address Organization Details Last Updated DateTime 0 163.83 cm 41.1 kg/m2 210854. 35 g 68 /min 98 % 98 % 99 [degF] 122 mm[Hg] 74 mm[Hg] [facility] 0 10:40:36 Date Recorded Body height Body temperature Oxygen saturation Oxygen saturation in Arterial blood by Pulse oximetry Heart rate Body mass index (BMI) Body weight Systolic blood pressure Diastolic blood pressure Provider Name and Address Organization Details Last Updated DateTime 9 163.83 cm 98.5 [degF] 96 % 96 % 83 /min 38.6 kg/m2 517914. 76 g 120 mm[Hg] 83 mm[Hg] [facility] 9 10:56:24 Date Recorded Body height Body mass index (BMI) Body weight Heart rate Oxygen saturation Oxygen saturation in Arterial blood by Pulse oximetry Body temperature Systolic blood pressure Diastolic blood pressure Provider Name and Address Organization Details Last Updated DateTime 1 163.83 cm 39.8 kg/m2 061508. 31 g 71 /min 96 % 96 % 97.9 [degF] 143 mm[Hg] 93 mm[Hg] [facility] 15:05:40 Social History Question Answer Notes LastModified by Organizat ion Details LastModified Time Tobacco Smoking Status Never Smoker Not Available [facility] 07/20/2020 03:11:16 Do You Have An Advance Directive? Yes [id number] Information not available 07/20/2020 Animal Exposure? Yes Informat ion not available 08/26/2013 Auto Related Injury? No Information not available 08/26/2013 Is Blood Transfusion Acceptable In An Emergency? Yes [id number] Information not available 07/20/2020 What Is Your Level Of Caffeine Consumption? Moderate [id number] Information not available 07/20/2020 Diabetes No Information no t available 08/26/2013 What Type Of Diet Are You Following? REGULAR [id number] Information not available 07/20/2020 Education 12 Information no t available 08/26/2013 What Is The Highest Grade Or Level Of School You Have Completed Or The Highest Degree You Have Received? [id number] Information not available 08/04/2021 Family History Of Heart Disease? Yes Information not available 08/26/2013 Which Of Your Hands Is Dominant? Right [id number] Information not available 07/20/2020 High Blood Pressure No Information not available 08/26/2013 High Cholesterol No Informat ion not available 08/26/2013 Live Alone Or With Others? With Others Information not available 08/26/2013 Marital Status Informatio n not available 08/26/2013 What Was The Date Of Your Most Recent Tobacco Screening? 09/28/2022 Information not available 10/21/2022 How Many Children Do You Have? 2 [id number] Information not available 07/20/2020 What Is Your Relationship Status? Information not available 08/04/2021 Do You Use Your Seat Belt Or Car Seat Routinely? Yes [id number] Information not available 07/20/2020 Seat Belts Used Routinely Yes Information not available 08/26/2013 Smoke Alarm In Home Yes Information not available 08/26/2013 General Stress Level High Information not available 08/26/2013 Do You Use Sunscreen Routinely? No [id number] Information not available 07/20/2020 Work Related Injury? No Information not available 08/26/2013 Sex: Female Functional Status Question Answer Note LastModified by Organizat ion Details LastModified Time What is your level of alcohol consumption? Occasional [id number] Information not available 07/20/2020 Are you currently employed? No [id number] Information not available 07/20/2020 Are you able to care for yourself? 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 Occasional [id number] Information not available 07/20/2020 Mental Status None recorded. Family History Relationship Description Onset Age of this Age Resolved Age Notes LastModified by Organization Details LastModified Time Mother Hypertensive disorder ALIVE Not available 2014 09:30:42 Mother Problem STROKE S Not available 06/04/2015 09:30:42 Maternal Grandmother Osteoporosis 86 STROKE Not available 06/04/2015 09:30:42 Father Malignant neoplastic disease 88 she does not know what he had as they were estran ged Not available 12/03/2018 14:18:13 Medical History Condition Response Coronary Artery Disease N Gout N Kidney Stones N Blood Diseases N Hyperthyroidism N Depression Y COPD N Hypothyroidism Y Developmental or Behavioral Disorders N Eczema, Hives or other skin conditions N Anxiety Disorder N Muscle, Joint, or Bone Problems N Vision or Eye Problems N Arthritis N Serious Illness or Injuries N Congenital Anomalies N Cancer N Stroke N Bladder or Kidney Problems Y Hospital Admission other than N High Cholesterol Y Liver Disease N Fibromyalgia N Kidney Disease N Heart Problems N Ear or Hearing Problems N ADD or ADHD N Thyroid Problems N Skin Problems N Anemia N Constipation N Diabetes Y Bedwetting N Seizures/Epilepsy N Tuberculosis N Diverticulitis N Asthma N Allergies N GERD/Reflux N Heart Disease N Pulmonary Embolism N Hypertension N Chicken Pox N Osteoporosis N Gynecological History Statement/Question Response Menses Monthly N Obstetrics History GPAL:G 0 P 0 0 0 0 Immunizations Vaccine Type Date Status Note Provider Nam e and Address Organization Details Recorded Time Influenza, split virus, quadrivalent, PF 7 completed Not Available [facility] 10/11/2019 02:12:13 Influenza, high-dose, trivalent, PF 9 completed Not Available [facility] 10/11/2019 02:12:13 Influenza, high-dose, quadrivalent, PF 1 completed Not Available [facility] 08/02/2021 15:12:59 Influenza, split virus, trivalent, preservative 4 completed Mary Ann South MD [address] [facility], [address], [place], [address], [facility] 10/30/2014 11:03:48 Influenza, high-dose, quadrivalent, PF 3 completed Mary Ann South MD 2017 [facility], [facility], [place], [address], [facility] 09/28/2022 21:13:33 Pneumococcal conjugate PCV 13 5 completed Not Available [facility] 10/25/2019 02:12:32 zoster live 5 completed Not Available [facility] 10/25/2019 02:12:32 Tdap 5 completed Not Available [facility] 10/25/2019 02:12:32 pneumococcal polysaccharide PPV23 6 completed Not Available [facility] 10/25/2019 02:12:33 Influenza, split virus, quadrivalent, preservative 6 completed Not Available [facility] 10/25/2019 02:12:33 COVID-19, mRNA, LNP-S, PF, 100 mcg/0.5mL dose or 50 mcg/0.25mL dose 1 completed [facility] 08/02/2021 15:11:41 COVID-19, mRNA, LNP-S, PF, 100 mcg/0.5mL dose or 50 mcg/0.25mL dose completed [facility] 08/02/2021 15:11:53 Past Encounters Encounter ID Performer Location Encounter Start Date Encounter Closed Date Diagnosis/Indication Diagnosis SNOMED-CT Code Diagnosis ICD10 Code Diagnosis Note [id number] Mary Ann South MD [facility] [address] [address] 08/26/2013 11:11:09 08/26/2013 15:41:00 Malaise and fatigue 924070883 Hypothyroidism 84257582 Bypass complications 073720145 Tooth disorder 745467284 Blood gluc ose outside reference range 428481107 Disorder of shoulder 586840043 Obesity 910474622 [id number] Mary Ann South MD [address] [address] 10/30/2014 09:28:06 10/30/2014 15:23:44 Acute sinusitis 28731704 [id number] Mary Ann South MD [address] [address] 06/04/2015 08:37:14 06/08/2015 07:56:03 Adult health examination 334208363 History of bariatric surgical procedure 150518212 Obesity 869677018 Disorder o f urinary tract 69912303 Hyperlipidemia 79747853 Hypothyroidism 71958005 [id number] Mary Ann South MD [address] [address] 08/15/2016 14:06:56 08/15/2016 15:48:52 Hyperlipidemia 86181507 E78.5 Adult [facility] th examination 603972146 Z00.01 Type 2 karley betes mellitus without complication 943528850 E11.9 Hypothyroidism 83137666 E03.9 Body mass index 40+ - severely obese 327576431 Z68.41 [id number] Mary Ann South MD [facility] [address] [address] 06/12/2017 10:29:43 06/13/2017 08:32:54 Vertigo 609440891 R42 Serous otitis media 8032 7007 H65.92 Active or passive immunization 400170502 Z23 Impacted cerumen 8651929 6 H61.21 [id number] Mary Ann South MD [facility] [address] [place] [address] 08/28/2017 10:25:05 08/30/2017 08:07:30 Adult health examination 076157668 Z00.01 Pain of mu ltiple joints 34807897 M25.50 Hyperlipidemia 67327059 E78.5 Body mass index 40+ - severely obese 411789160 Z68.42 History of bariatric surgical procedure 229596462 Z98.84 Obesity 800938749 E66.9 Disorder o f urinary tract 59210843 N39.9 Hypothyroidism 51636977 E03.9 Prediabetes 374844564 R7 3.03 [id number] Mary Ann South MD [facility] [address] [place] [id number] 12/03/2018 13:43:48 12/06/2018 09:17:20 Adult health examination 318457608 Z00.01 Bladder mu scle dysfunction - overactive 047901240 N32.81 Hypothyroidism 86331295 E03.9 Screening mammography 24 487354 Z12.31 she had a DEXA previously at [facility] Active or passive immunization 504839154 Z23 Hyperlipidemia 80113055 E78.5 History of bariatric surgical procedure 420976092 Z98.84 Obesity 481073469 E66.9 Disorder o f urinary tract 91613547 N39.9 Prediabetes 905875683 R7 3.03 Body mass index 30+ - obesity 404995220 Z68.39 [id number] Mary Ann South MD [facility] [address] [place] [address] 06/13/2019 10:51:55 06/16/2019 08:22:52 Screening mammography 49917851 Z12.31 she had a DEXA previously at [facility] Prediabetes 341944148 R7 3.03 Hypothyroidism 50762678 E03.9 Hyperlipidemia 11853841 E78.5 Bladder mu scle dysfunction - overactive 208290465 N32.81 [id number] Mary Ann South MD [facility] [address] [address] 05/04/2020 10:31:20 05/06/2020 08:21:40 Adult health examination 954400691 Z00.01 Bladder mu scle dysfunction - overactive 209102373 N32.81 Hypothyroidism 92830108 E03.9 Screening mammography 24 497187 Z12.31 she had a DEXA previously at [facility] Hyperlipidemia 80344571 E78.5 History of bariatric surgical procedure 092397133 Z98.84 Obesity 739784969 E66.9 Disorder o f urinary tract 57936009 N39.9 Prediabetes 950897167 R7 3.03 Body mass index 30+ - obesity 135664562 Z68.41 Hypertensi on screening 670720042 Z13.6 [id number] Mary Ann South MD [facility] [address] [address] 08/02/2021 14:37:35 08/05/2021 08:23:18 Administration of influenza vaccine 82656288 Z23 Type 2 karley betes mellitus without complication 903440494 E11.9 Adult heal th examination 102504334 Z00.01 Bladder mu scle dysfunction - overactive 211534514 N32.81 Hypothyroidism 45116749 E03.9 Screening mammography 24 355079 Z12.31 she had a DEXA previously at [facility] Hyperlipidemia 74646185 E78.5 History of bariatric surgical procedure 110129718 Z98.84 Obesity 033458385 E66.9 Disorder o f urinary tract 15766218 N39.9 Prediabetes 771711937 R7 3.03 Body mass index 30+ - obesity 290100478 Z68.41 Hypertensi on screening 155988862 Z13.6 Callosity on toe 1333168 01 L84 medial second toe rt foot S/[place] [id number] Mary Ann South MD [facility] [address] [address] 09/28/2022 14:30:57 09/29/2022 10:14:56 Adult health examination 092145865 Z00.01 Administra tion of influenza vaccine 79957820 Z23 Type 2 karley betes mellitus without complication 295912784 E11.9 Bladder mu scle dysfunction - overactive 732732959 N32.81 Hypothyroidism 26843168 E03.9 Screening mammography 24 056528 Z12.31 she had a DEXA previously at [facility] Hyperlipidemia 03958109 E78.5 History of bariatric surgical procedure 703109201 Z98.84 Obesity 118225822 E66.9 Disorder o f urinary tract 72412679 N39.9 Prediabetes 692441185 R7 3.03 Body mass index 30+ - obesity 517361126 Z68.38 Hypertensi on screening 655014439 Z13.6 Callosity on toe 1111783 01 L84 medial second toe rt foot S/p bunionecto my on rt Low back pain 458274085 M54.50 History of surgery 16016 5003 Z98.890 bilateraly bunionecto mies and hammer to surgeries Screening for malignant neoplasm of colon 668618478 Z12.11 Screening for cardiovascular system disease 312576024 Z13.6 [id number] Mary Ann South MD [facility] [address] [place] [address], [address] [place] [address] 04/10/2023 10:26:10 04/12/2023 08:48:57 Hypothyroidism 47765040 E03.9 Type 2 karley betes mellitus without complication 326332229 E11.9 Body mass index 30+ - obesity 333330981 Z68.38 Abnormal b lood pressure 90332331 Z01.31 Health Concerns Section Related Observation LastModified by Organization Detai ls LastModified Time None Recorded Concern Status LastModified by Organization Details LastModified Time None Recorded Advance Directives Directive Y: Payers Encounter Date Sequence Insurance Name Policy Number Policy Harrison Covered Member ID Harrison Member ID Guarantor Name 06/13/2019 2 [employer] SU[employer] - [employer] (MEDICARE SUPPLEMENT) Evon Maier Lambertgli [id number] Evon Astorga Lambertgli 06/13/2019 1 [place] Evon Maier Maximinoi [id number] Evon Astorga Brogli 05/04/2020 2 [employer] SU[employer]LEMENT[employer] - [employer] (MEDICARE SUPPLEMENT) Evon Livier Verdingli [id number] Evon L Brogli 05/04/2020 1 [place] Evon Livier Stantoni [id number] Evon L Brogli 08/02/2021 2 [employer] SU[employer]MENT[employer] - [employer] (MEDICARE SUPPLEMENT) Evon Livier Verdingli [id number] Evon Castillo 08/02/2021 1 [place] Evon Castillo [id number] Evon Castillo 09/28/2022 2 [employer] SU[employer]LEMENTAL - [employer] (MEDICARE SUPPLEMENT) Evon Castillo [id number] Evon Castillo 09/28/2022 1 [place] Evon Castillo [id number] Evon Castillo 04/10/2023 2 [employer] SU[employer]MENT[employer] - [employer] (MEDICARE SUPPLEMENT) Evon Castillo [id number] Evon Castillo 04/10/2023 1 [place] Evon Castillo [id number] Evon Castillo Notes Date Note Type Note Provider Name and Address Organization Details Recorded Time 06/13/2019 text/html Ms. Castillo presents for her biannual diabetes check up. She appears healthy. She has no health concerns at this time. She is doing a low carbohydrate diet so is feeling much better. She also requested for us to fill out her handicapped papers. Mary Ann South MD [address] [facility], [address], [address], [facility] 06/14/2019 14:21:00 08/02/2021 text/html was planning her daughter's wedding for 6 months and she just called it off and is moving back home with parents and their 8 yo granddaughter. So there is a lot of stress. They were going to [place] for the wedding and they will keep the house for a vacation in March! Mary Ann South MD [address] [facility], [facility], [place], [address], [facility] 08/04/2021 21:38:06 09/28/2022 text/html has only had 2 covid vaccines and will not take any more. Mary Ann South MD [address] [facility], [facility], [place], [address], [facility] 09/28/2022 21:42:07 OBGyn Episode No OBEpisode recorded.
== END ==
LOC: SL 11:09
PROVIDERS: PCP Internal Medicine; Visit Provider Internal Medicine
DX: G47.33 Obstructive sleep apnea (adult) (pediatric) (principal); G47.36 Sleep related hypoventilation in conditions classified elsewhere
CPT/HCPCS: G0399